=== PATIENT | male | born 1955 | race Two or more races ===

== ENCOUNTER 2021-04-26 23:22 | Emergency (ER) | payer MEDICARE ==
[~2021-04-26] VITALS: Ht 182.9 cm; Wt 104.3 kg
[2021-04-27 01:51] LABS: Basophils # (auto) 0 10 ^3/uL (0-0.2); Basophils % (auto) 0.7 % (0.0-2.0); Eosinophils # (auto) 0.1 10 ^3/uL (0-0.8); Eosinophils % (auto) 1.4 % (0.0-7.0); Hemoglobin 15.1 g/dL (13.5-17.5); Lymphocytes % (auto) 17.5 % (10.0-50.0); Mean Corpuscular Hgb Conc. 33.6 g/dL (32.0-36.0); Mean Corpuscular Volume 86.4 fL (80.0-100.0); Monocytes # (auto) 0.8 10 ^3/uL (0-1.3); Monocytes % (auto) 13.4 % (0.0-12.0); Nucleated Red Blood Cells % 0.5 %; Red Cell Distribution Width 13.6 % (11.8-14.3)
[2021-04-27 02:06] LABS: Potassium 3.6 mmol/L (3.5-5.1)
[2021-04-27 02:09] LABS: BUN/Creatinine Ratio 22.5
[2021-04-27 02:11] LABS: Bilirubin, Total 0.6 mg/dL (0.2-1.0); Total Protein 7.5 g/dL (6.4-8.2)
[2021-04-27 06:00] VITALS: BP 105/51
[2021-04-27] MEDS ORDERED: POLY33504 PO (06:32)
== END 2021-04-27 07:02 | disposition home or self-care (01) ==
LOC: ER 23:22
DX: K64.4 Residual hemorrhoidal skin tags (principal); I10 Essential (primary) hypertension; Z88.6 Allergy status to analgesic agent
CPT/HCPCS: 36415; 80053; 85025; 86850; 86900; 86901